=== PATIENT | female | born 1970 | race Caucasian/White ===

== ENCOUNTER → 2023-08-04 14:56 | Outpatient (REF) | payer BC, SELFPAY | LOC: HWEVLT 14:56 | PROVIDERS: ATTENDING PHYSICIAN Radiology Vascular & Interventional Radiology | DX: I83.893 Varicose veins of bilateral lower extremities with other complications (principal) | CPT/HCPCS: 93970 ==

== ENCOUNTER → 2023-10-22 14:29 | Outpatient (REF) | payer BC, SELFPAY | LOC: HWEVLT 14:29 | PROVIDERS: ATTENDING PHYSICIAN Radiology Vascular & Interventional Radiology | DX: I83.892 Varicose veins of left lower extremity with other complications (principal) | CPT/HCPCS: 36478; C1769 ==

== ENCOUNTER → 2023-11-04 14:59 | Outpatient (REF) | payer BC, SELFPAY | LOC: HWEVLT 14:59 | PROVIDERS: ATTENDING PHYSICIAN Radiology Vascular & Interventional Radiology | DX: I83.892 Varicose veins of left lower extremity with other complications (principal) | CPT/HCPCS: 93971 ==